=== PATIENT | male | born 1950 ===

== ENCOUNTER 2021-01-26 17:42 | Inpatient (IN) ==
[2021-01-26] MEDS ORDERED: Lactulose Oral Soln 20 GM/30 ML UDC PO STA (18:03)
[2021-01-26] MEDS ORDERED: Pantoprazole 40 MG VIAL IVP ONE (19:40)
[2021-01-26] MEDS ORDERED: cefTRIAXone 1,000 MG in Water for inj. (sterile) 10 ML IVP ONE (19:40)
[2021-01-26] MEDS ORDERED: Pantoprazole 40 MG VIAL IVP STA (19:51)
[2021-01-26 20:01] LABS: INR 1.9; Prothrombin Time 21.1 Seconds (9.4-12.1)
[2021-01-26] MEDS ORDERED: Octreotide 400 MCG in 0.9 % Sodium Chloride 100 ML IVC SCH (20:15)
[2021-01-26] MEDS: Octreotide 400 MCG in 0.9 % Sodium Chloride 100 ML IVC SCH (20:28)
[2021-01-26] MEDS ORDERED: Naloxone 0.4 MG/ML INJ IVP PRN (20:43)
[2021-01-26] MEDS ORDERED: Ondansetron 4 MG/2 ML VIAL IVP PRN (20:49)
[2021-01-26] MEDS ORDERED: Pantoprazole 40 MG in 0.9 % Sodium Chloride 50 ML IVPB ONE (20:54)
[2021-01-26] MEDS ORDERED: *HR* Promethazine 25 MG/ML VIAL IM PRN (21:12)
[2021-01-26] MEDS ORDERED: *HR* LORazepam 2 MG/ML VIAL IVP PRN ×3 (21:12)
[2021-01-26] MEDS ORDERED: Dextrose Gel 15 GM/37.5 ML TUBE PO PRN (21:14)
[2021-01-26] MEDS ORDERED: D5% in Water 1,000 ML IVC PRN (21:14)
[2021-01-26] MEDS ORDERED: *HR* Dextrose 50 % in Water (Vial) 50 ML VIAL IVP PRN (21:14)
[2021-01-26] MEDS ORDERED: Spironolactone 25 MG TABLET PO SCH (23:00)
[2021-01-26 23:39] LABS: Hematocrit 24.3 % (37.5-50.1); Hemoglobin 7.9 g/dL (12.9-16.9)
[2021-01-26 23:42] LABS: Alanine Aminotransferase 12 Units/L (7-52); Albumin 3.1 g/dL (3.5-5.7); Albumin/Globulin Ratio 1.1 (1.1-2.2); Alkaline Phosphatase 83 Units/L (34-104); Aspartate Amino Transferase 34 Units/L (13-39); BUN/Creatinine Ratio 16 (6-26); Bilirubin,Total 5.6 mg/dL (0.3-1.0); Blood Urea Nitrogen 16 mg/dL (8-23); Calcium 9.1 mg/dL (8.6-10.3); Carbon Dioxide 25 mEq/L (23-29); Chloride 97 mEq/L (98-107); Globulin 2.7 g/dL (2.4-3.5); Glucose 130 mg/dL (70-105); Magnesium 1.5 mg/dL (1.6-2.6); Osmolality,Calculated 279 (280-300); Potassium 3.6 mEq/L (3.5-5.1); Sodium 133 mEq/L (136-145); Total Protein 5.8 g/dL (6.4-8.9); Troponin I < 0.03 ng/mL (< 0.04); eGFR For African Americans > 60 (> 60); eGFR For Non-African Americans > 60 (> 60)
[2021-01-27] MEDS ORDERED: Insulin LISPRO 300 UNITS/3 ML VIAL SUBQ SCH
[2021-01-27] MEDS ORDERED: Albumin 25% 25gram/100mL 25 GM/100 ML IV.SOLN IVPB SCH
[2021-01-27] MEDS: Albumin 25% 25gram/100mL 25 GM/100 ML IV.SOLN IVC SCH ×2 (03:00→03:32)
[2021-01-27 03:25] LABS: Mean Corpuscular HGB Conc 32.3 g/dL (31.6-35.5); White Blood Count 4.8 K/mcL (4.3-11.1)
[2021-01-27 03:26] LABS: Hemoglobin 7.1 g/dL (12.9-16.9); Immature Platelets 2.2 % (1.1-6.1); Mean Corpuscular Volume 89.8 fL (83.0-100.0); Mean Platelet Volume 9.8 fL (9.4-12.4); Red Blood Count 2.45 M/mcL (4.19-5.50); Red Cell Distribution Width 15.3 % (11.5-14.5)
[2021-01-27] MEDS: Octreotide 400 MCG in 0.9 % Sodium Chloride 100 ML IVC SCH ×2 (03:31→16:06)
[2021-01-27 03:32] LABS: Prothrombin Time 23.2 Seconds (9.4-12.1)
[2021-01-27 03:43] LABS: Alanine Aminotransferase 11 Units/L (7-52); Albumin 3.1 g/dL (3.5-5.7); Albumin/Globulin Ratio 1.3 (1.1-2.2); Alkaline Phosphatase 71 Units/L (34-104); Aspartate Amino Transferase 31 Units/L (13-39); BUN/Creatinine Ratio 16 (6-26); Bilirubin,Total 4.8 mg/dL (0.3-1.0); Blood Urea Nitrogen 16 mg/dL (8-23); Carbon Dioxide 27 mEq/L (23-29); Chloride 98 mEq/L (98-107); Globulin 2.4 g/dL (2.4-3.5); Glucose 118 mg/dL (70-105); Osmolality,Calculated 278 (280-300); Potassium 3.5 mEq/L (3.5-5.1); Sodium 133 mEq/L (136-145); Total Protein 5.5 g/dL (6.4-8.9); eGFR For African Americans > 60 (> 60); eGFR For Non-African Americans > 60 (> 60)
[2021-01-27] MEDS ORDERED: *HR* Dextrose 50 % in Water (Vial) 50 ML VIAL IVP PRN (04:04)
[2021-01-27] MEDS ORDERED: Dextrose Gel 15 GM/37.5 ML TUBE PO PRN (04:04)
[2021-01-27] MEDS ORDERED: Albumin 25% 25gram/100mL 25 GM/100 ML IV.SOLN IVC SCH (04:04)
[2021-01-27] MEDS ORDERED: Pantoprazole 40 MG in 0.9 % Sodium Chloride 50 ML IVPB ONE (04:04)
[2021-01-27] MEDS ORDERED: D5% in Water 1,000 ML IVC PRN (04:04)
[2021-01-27] MEDS ORDERED: Naloxone 0.4 MG/ML INJ IVP PRN (04:04)
[2021-01-27] MEDS ORDERED: Ondansetron 4 MG/2 ML VIAL IVP PRN (04:04)
[2021-01-27] MEDS ORDERED: *HR* Promethazine 25 MG/ML VIAL IM PRN (04:04)
[2021-01-27] MEDS ORDERED: Octreotide 400 MCG in 0.9 % Sodium Chloride 100 ML IVC SCH (04:04)
[2021-01-27] MEDS ORDERED: Pantoprazole 40 MG VIAL IVP SCH ×2 (05:15→06:00)
[2021-01-27] MEDS ORDERED: 0.9 % Sodium Chloride 250 ML ONE ×2 (05:41→10:28)
[2021-01-27] MEDS: Insulin LISPRO 300 UNITS/3 ML VIAL SUBQ SCH ×4 (06:55→23:31)
[2021-01-27] MEDS ORDERED: Venlafaxine XR (24 HR) 37.5 MG CAP.ER.24H PO SCH (09:00)
[2021-01-27] MEDS ORDERED: Lactulose Oral Soln 20 GM/30 ML UDC PO SCH (09:00)
[2021-01-27] MEDS ORDERED: Furosemide 20 MG TABLET PO SCH (09:00)
[2021-01-27] MEDS: Pantoprazole 40 MG VIAL IVP SCH ×2 (10:30→20:39)
[2021-01-27] MEDS: Venlafaxine XR (24 HR) 37.5 MG CAP.ER.24H PO SCH (10:31)
[2021-01-27] MEDS: Lactulose Oral Soln 20 GM/30 ML UDC PO SCH ×2 (10:31→20:41)
[2021-01-27] MEDS ORDERED: cefTRIAXone 2,000 MG in Water for inj. (sterile) 20 ML IVP SCH (12:00)
[2021-01-27] MEDS: cefTRIAXone 2,000 MG in Water for inj. (sterile) 20 ML IVP SCH (14:39)
[2021-01-27 16:14] LABS: Eosinophils # 0.2 K/mcL (0.0-0.6); Eosinophils % 2.4 %; Immature Granulocytes % 0.5 % (0-4); Monocytes # 0.7 K/mcL (0.0-1.3); Monocytes % 11.7 %; White Blood Count 6.3 K/mcL (4.3-11.1)
[2021-01-27 16:16] LABS: Basophils % 0.5 %; Hematocrit 28.3 % (37.5-50.1); Immature Platelets 2.7 % (1.1-6.1); Lymphocytes # 1.2 K/mcL (0.6-4.6); Lymphocytes % 18.9 %; Mean Corpuscular HGB Conc 31.8 g/dL (31.6-35.5); Mean Corpuscular Hemoglobin 28.5 pg (28.0-33.3); Mean Corpuscular Volume 89.6 fL (83.0-100.0); Mean Platelet Volume 10.2 fL (9.4-12.4); Neutrophils # 4.2 K/mcL (1.6-8.9); Red Blood Count 3.16 M/mcL (4.19-5.50); Red Cell Distribution Width 15.6 % (11.5-14.5)
[2021-01-27 16:25] LABS: Platelet Count 82 K/mcL (140-400)
[2021-01-27 16:35] LABS: % Iron Saturation 42 % (20-55); Ferritin 29 ng/mL (20-250); Iron 84 mcg/dL (65-175); Transferrin 142 mg/dL (203-362)
[2021-01-27] MEDS ORDERED: SODIUM CHLORIDE/NAHCO3/KCL/PEG 4,000 ML SOLN.RECON PO ONE (17:00)
[2021-01-27] MEDS ORDERED: Thiamine (B-1) 100 MG, Folic Acid 1 MG, MVI, adult with vitamin K 10 ML in 0.9 % Sodi... IVPB SCH (18:00)
[2021-01-27] MEDS: hydrOXYzine pamoate 25 MG CAPSULE PO SCH (20:39)
[2021-01-27] MEDS ORDERED: hydrOXYzine pamoate 25 MG CAPSULE PO SCH (21:00)
[2021-01-28] MEDS: Octreotide 400 MCG in 0.9 % Sodium Chloride 100 ML IVC SCH ×2 (00:06→13:25)
[2021-01-28 03:44] LABS: Hematocrit 27.3 % (37.5-50.1); Hemoglobin 8.9 g/dL (12.9-16.9); Immature Platelets 2.1 % (1.1-6.1); Mean Corpuscular HGB Conc 32.6 g/dL (31.6-35.5); Mean Corpuscular Hemoglobin 28.4 pg (28.0-33.3); Mean Corpuscular Volume 87.2 fL (83.0-100.0); Mean Platelet Volume 9.5 fL (9.4-12.4); Red Blood Count 3.13 M/mcL (4.19-5.50); Red Cell Distribution Width 15.6 % (11.5-14.5); White Blood Count 6.5 K/mcL (4.3-11.1)
[2021-01-28 03:53] LABS: INR 2.4; Prothrombin Time 27.1 Seconds (9.4-12.1)
[2021-01-28 04:01] LABS: Alanine Aminotransferase 13 Units/L (7-52); Albumin 3.2 g/dL (3.5-5.7); Albumin/Globulin Ratio 1.3 (1.1-2.2); Alkaline Phosphatase 70 Units/L (34-104); Aspartate Amino Transferase 38 Units/L (13-39); BUN/Creatinine Ratio 16 (6-26); Bilirubin,Total 4.2 mg/dL (0.3-1.0); Blood Urea Nitrogen 15 mg/dL (8-23); Calcium 8.8 mg/dL (8.6-10.3); Carbon Dioxide 25 mEq/L (23-29); Chloride 99 mEq/L (98-107); Globulin 2.5 g/dL (2.4-3.5); Glucose 108 mg/dL (70-105); Osmolality,Calculated 277 (280-300); Potassium 3.2 mEq/L (3.5-5.1); Sodium 133 mEq/L (136-145); Total Protein 5.7 g/dL (6.4-8.9); eGFR For African Americans > 60 (> 60); eGFR For Non-African Americans > 60 (> 60)
[2021-01-28] MEDS: Insulin LISPRO 300 UNITS/3 ML VIAL SUBQ SCH ×3 (06:33→19:33)
[2021-01-28] MEDS ORDERED: Lidocaine -MPF 2% 2 ML VIAL ONE (09:06)
[2021-01-28] MEDS ORDERED: *HR* EPINEPHrine 1 MG/10 ML SYRINGE IVP PRN (10:23)
[2021-01-28] MEDS ORDERED: *HR* EPINEPHrine 1 MG/10 ML SYRINGE ONE (10:30)
[2021-01-28] MEDS: Pantoprazole 40 MG VIAL IVP SCH (11:10)
[2021-01-28] MEDS: Venlafaxine XR (24 HR) 37.5 MG CAP.ER.24H PO SCH (11:11)
[2021-01-28] MEDS: Lactulose Oral Soln 20 GM/30 ML UDC PO SCH ×2 (11:11→19:45)
[2021-01-28] MEDS: cefTRIAXone 2,000 MG in Water for inj. (sterile) 20 ML IVP SCH (12:43)
[2021-01-28] MEDS: Furosemide 40 MG TABLET PO SCH (12:44)
[2021-01-28] MEDS ORDERED: [UNRECOGNIZED DRUG - OTHER] IVPB ONE ×2 (14:22→20:00)
[2021-01-28] MEDS ORDERED: WATER FOR INJ IVPB ONE ×2 (14:22→20:00)
[2021-01-28] MEDS ORDERED: HUM PROTHROMBIN CPLX IVPB ONE ×2 (14:22→20:00)
[2021-01-28 18:54] LABS: RBC,Peritoneal Fluid < 2000 RBC/mcL
[2021-01-28 19:35] LABS: Appearance of Peritoneal Fl CLEAR (Clear); Basophils,Peritoneal Fluid 0 %; Eosinophils,Peritoneal Fluid 0 %
[2021-01-28] MEDS: hydrOXYzine pamoate 25 MG CAPSULE PO SCH (19:45)
[2021-01-29] MEDS: Insulin LISPRO 300 UNITS/3 ML VIAL SUBQ SCH ×4 (00:50→17:10)
[2021-01-29 05:14] LABS: INR 1.7; Prothrombin Time 19.5 Seconds (9.4-12.1)
[2021-01-29 05:17] LABS: Hematocrit 30.5 % (37.5-50.1); Hemoglobin 9.9 g/dL (12.9-16.9); Mean Corpuscular HGB Conc 32.5 g/dL (31.6-35.5); Mean Corpuscular Volume 89.4 fL (83.0-100.0); Mean Platelet Volume 9.2 fL (9.4-12.4); Platelet Count 95 K/mcL (140-400); Red Blood Count 3.41 M/mcL (4.19-5.50); Red Cell Distribution Width 15.8 % (11.5-14.5); White Blood Count 6.7 K/mcL (4.3-11.1)
[2021-01-29 05:37] LABS: Alanine Aminotransferase 13 Units/L (7-52); Albumin 3.2 g/dL (3.5-5.7); Albumin/Globulin Ratio 1.2 (1.1-2.2); Alkaline Phosphatase 71 Units/L (34-104); Aspartate Amino Transferase 38 Units/L (13-39); BUN/Creatinine Ratio 13 (6-26); Bilirubin,Total 3.1 mg/dL (0.3-1.0); Blood Urea Nitrogen 12 mg/dL (8-23); Carbon Dioxide 30 mEq/L (23-29); Chloride 97 mEq/L (98-107); Globulin 2.6 g/dL (2.4-3.5); Glucose 100 mg/dL (70-105); Osmolality,Calculated 274 (280-300); Potassium 3.3 mEq/L (3.5-5.1); Sodium 132 mEq/L (136-145); Total Protein 5.8 g/dL (6.4-8.9); eGFR For African Americans > 60 (> 60); eGFR For Non-African Americans > 60 (> 60)
[2021-01-29] MEDS ORDERED: [UNRECOGNIZED DRUG - OTHER] IVPB ONE (05:45)
[2021-01-29] MEDS ORDERED: WATER FOR INJ IVPB ONE (05:45)
[2021-01-29] MEDS ORDERED: HUM PROTHROMBIN CPLX IVPB ONE (05:45)
[2021-01-29] MEDS: Octreotide 400 MCG in 0.9 % Sodium Chloride 100 ML IVC SCH (07:30)
[2021-01-29] MEDS ORDERED: FEIBA (wt based) 1 EACH VIAL IV ONE (08:00)
[2021-01-29] MEDS ORDERED: ANTI INHIBITOR COAGULANT COMP IV ONE (08:00)
[2021-01-29] MEDS ORDERED: WATER FOR INJ IV ONE (08:00)
[2021-01-29] MEDS: Venlafaxine XR (24 HR) 37.5 MG CAP.ER.24H PO SCH (08:22)
[2021-01-29] MEDS: Furosemide 40 MG TABLET PO SCH (08:22)
[2021-01-29] MEDS ORDERED: Lidocaine -MPF 2% 2 ML VIAL ONE (09:02)
[2021-01-29] MEDS ORDERED: *HR* Propofol 200 MG/20 ML VIAL IVP ONE ×3 (09:53→10:15)
[2021-01-29] MEDS: Lactulose Oral Soln 20 GM/30 ML UDC PO SCH ×2 (09:57→20:03)
[2021-01-29] MEDS ORDERED: Potassium Chloride Elixir 20 MEQ/15 ML UDC PO ONE (13:31)
[2021-01-29] MEDS: hydrOXYzine pamoate 25 MG CAPSULE PO SCH (20:03)
[2021-01-30] MEDS: Insulin LISPRO 300 UNITS/3 ML VIAL SUBQ SCH ×2 (00:13→06:12)
[2021-01-30 04:24] LABS: Basophils % 0.4 %; Mean Platelet Volume 9.9 fL (9.4-12.4)
[2021-01-30 04:26] LABS: Eosinophils # 0.3 K/mcL (0.0-0.6); Eosinophils % 4.2 %; Hematocrit 29.6 % (37.5-50.1); Hemoglobin 9.7 g/dL (12.9-16.9); Immature Granulocytes % 0.4 % (0-4); Immature Platelets 1.7 % (1.1-6.1); Lymphocytes # 1.4 K/mcL (0.6-4.6); Lymphocytes % 20.1 %; Mean Corpuscular HGB Conc 32.8 g/dL (31.6-35.5); Mean Corpuscular Hemoglobin 29.8 pg (28.0-33.3); Mean Corpuscular Volume 91.1 fL (83.0-100.0); Monocytes % 14.6 %; Red Blood Count 3.25 M/mcL (4.19-5.50); Red Cell Distribution Width 15.8 % (11.5-14.5); Segmented Neutrophils % 60.3 %; White Blood Count 6.9 K/mcL (4.3-11.1)
[2021-01-30 04:30] LABS: Neutrophils # 4.2 K/mcL (1.6-8.9); Platelet Count 92 K/mcL (140-400)
[2021-01-30 04:43] LABS: Alanine Aminotransferase 12 Units/L (7-52); Albumin 2.9 g/dL (3.5-5.7); Albumin/Globulin Ratio 1.2 (1.1-2.2); Alkaline Phosphatase 70 Units/L (34-104); Aspartate Amino Transferase 37 Units/L (13-39); BUN/Creatinine Ratio 14 (6-26); Bilirubin,Direct 0.9 mg/dL (0.0-0.2); Bilirubin,Indirect 1.7 mg/dL (0.0-1.0); Bilirubin,Total 2.6 mg/dL (0.3-1.0); Blood Urea Nitrogen 12 mg/dL (8-23); Calcium 8.6 mg/dL (8.6-10.3); Carbon Dioxide 30 mEq/L (23-29); Chloride 100 mEq/L (98-107); Globulin 2.4 g/dL (2.4-3.5); Glucose 98 mg/dL (70-105); Osmolality,Calculated 278 (280-300); Potassium 3.4 mEq/L (3.5-5.1); Sodium 134 mEq/L (136-145); Total Protein 5.3 g/dL (6.4-8.9); eGFR For African Americans > 60 (> 60); eGFR For Non-African Americans > 60 (> 60)
[2021-01-30 07:11] VITALS: BP 116/65
[2021-01-30] MEDS: Furosemide 40 MG TABLET PO SCH (08:23)
[2021-01-30] MEDS: Lactulose Oral Soln 20 GM/30 ML UDC PO SCH (08:23)
[2021-01-30] MEDS: Venlafaxine XR (24 HR) 37.5 MG CAP.ER.24H PO SCH (08:23)
[2021-01-30] MEDS ORDERED: Potassium Chloride Elixir 20 MEQ/15 ML UDC PO ONE (09:45)
== END 2021-01-30 11:31 | disposition home or self-care (01) | DRG 988 ==
LOC: 2NNU 17:42 → EMEROOARM 17:42 → SUATTDRO 21:02 → 2NNU 22:34 → 3ANU 01-27 04:03
PROVIDERS: ADMIT Internal Medicine; ATTEND Internal Medicine

== ENCOUNTER 2021-06-10 16:44 | Observation (INO) ==
[2021-06-10 17:54] LABS: Basophils % 0.3 %; Mean Platelet Volume 9.3 fL (9.4-12.4); Red Cell Distribution Width 14.9 % (11.5-14.5)
[2021-06-10 17:56] LABS: Eosinophils # 0.1 K/mcL (0.0-0.6); Eosinophils % 1.8 %; Hematocrit 36.6 % (37.5-50.1); Hemoglobin 12.7 g/dL (12.9-16.9); Immature Granulocytes % 0.2 % (0-4); Lymphocytes # 1.3 K/mcL (0.6-4.6); Lymphocytes % 19.8 %; Mean Corpuscular HGB Conc 34.7 g/dL (31.6-35.5); Mean Corpuscular Volume 95.1 fL (83.0-100.0); Monocytes # 1.1 K/mcL (0.0-1.3); Monocytes % 17.2 %; Red Blood Count 3.85 M/mcL (4.19-5.50); Segmented Neutrophils % 60.7 %; White Blood Count 6.6 K/mcL (4.3-11.1)
[2021-06-10 18:00] LABS: Platelet Count 92 K/mcL (140-400)
[2021-06-10 18:18] LABS: BUN/Creatinine Ratio 14 (6-26); Blood Urea Nitrogen 11 mg/dL (8-23); Calcium 9.3 mg/dL (8.6-10.3); Carbon Dioxide 27 mEq/L (23-29); Chloride 100 mEq/L (98-107); Glucose 96 mg/dL (70-105); Osmolality,Calculated 273 (280-300); Potassium 4.1 mEq/L (3.5-5.1); Sodium 132 mEq/L (136-145); eGFR For African Americans > 60 (> 60); eGFR For Non-African Americans > 60 (> 60)
[2021-06-10 19:10] LABS: Alanine Aminotransferase 20 Units/L (7-52); Albumin 3.2 g/dL (3.5-5.7); Albumin/Globulin Ratio 1.1 (1.1-2.2); Alkaline Phosphatase 106 Units/L (34-104); Aspartate Amino Transferase 39 Units/L (13-39); Bilirubin,Direct 1.4 mg/dL (0.0-0.2); Bilirubin,Indirect 3.2 mg/dL (0.0-1.0); Bilirubin,Total 4.6 mg/dL (0.3-1.0); Lipase 46 Units/L (11-82); Total Protein 6.2 g/dL (6.4-8.9)
[2021-06-10 19:46] LABS: INR 1.6
[2021-06-10 20:17] LABS: Activated Partial Thrombo Time 63.8 Seconds (26.0-36.0)
[2021-06-10] MEDS ORDERED: Naloxone 0.4 MG/ML INJ IVP PRN (22:16)
[2021-06-10] MEDS ORDERED: Ondansetron 4 MG/2 ML VIAL IVP PRN (22:16)
[2021-06-10] MEDS ORDERED: Ipratropium/Albuterol Neb 3 ML IH PRN (23:55)
[2021-06-11] MEDS ORDERED: Furosemide 40 MG/4 ML VIAL IVP ONE (00:05)
[2021-06-11] MEDS ORDERED: Perflutren Lipid Microsphere 1.3 ML in 0.9 % Sodium Chloride 8.7 ML IVP PRN (00:06)
[2021-06-11 02:04] LABS: Basophils % 0.3 %; Immature Granulocytes % 0.2 % (0-4); Red Cell Distribution Width 14.9 % (11.5-14.5)
[2021-06-11 02:06] LABS: Eosinophils # 0.1 K/mcL (0.0-0.6); Eosinophils % 2.3 %; Hematocrit 37.6 % (37.5-50.1); Immature Platelets 1.8 % (1.1-6.1); Lymphocytes # 1.4 K/mcL (0.6-4.6); Lymphocytes % 23.5 %; Mean Corpuscular HGB Conc 34.6 g/dL (31.6-35.5); Mean Corpuscular Volume 95.4 fL (83.0-100.0); Mean Platelet Volume 9.4 fL (9.4-12.4); Monocytes # 0.8 K/mcL (0.0-1.3); Monocytes % 13.8 %; Neutrophils # 3.6 K/mcL (1.6-8.9); Red Blood Count 3.94 M/mcL (4.19-5.50); Segmented Neutrophils % 59.9 %
[2021-06-11 02:08] LABS: Platelet Count 86 K/mcL (140-400)
[2021-06-11 02:11] LABS: INR 1.5; Prothrombin Time 16.7 Seconds (9.4-12.1)
[2021-06-11 02:14] LABS: Activated Partial Thrombo Time 34.4 Seconds (26.0-36.0)
[2021-06-11 02:23] LABS: BUN/Creatinine Ratio 15 (6-26); Blood Urea Nitrogen 11 mg/dL (8-23); Calcium 9.5 mg/dL (8.6-10.3); Carbon Dioxide 22 mEq/L (23-29); Chloride 102 mEq/L (98-107); Glucose 116 mg/dL (70-105); Magnesium 1.7 mg/dL (1.6-2.6); Osmolality,Calculated 274 (280-300); Phosphorous 2.7 mg/dL (2.7-4.5); Potassium 3.6 mEq/L (3.5-5.1); Sodium 132 mEq/L (136-145); eGFR For African Americans > 60 (> 60); eGFR For Non-African Americans > 60 (> 60)
[2021-06-11] MEDS ORDERED: Furosemide 40 MG TABLET PO SCH ×2 (08:00→09:00)
[2021-06-11] MEDS: Albumin 25% 25gram/100mL 25 GM/100 ML IV.SOLN IVC SCH ×4 (08:24→13:41)
[2021-06-11] MEDS ORDERED: Lactulose Oral Soln 20 GM/30 ML UDC PO SCH (09:00)
[2021-06-11] MEDS ORDERED: Multivit/Ca/Min/Fe/FA 1 TAB TABLET PO SCH (09:00)
[2021-06-11] MEDS ORDERED: Venlafaxine XR (24 HR) 37.5 MG CAP.ER.24H PO SCH (09:00)
[2021-06-11 10:49] VITALS: TEMP 98.2
[2021-06-11 14:05] LABS: RBC,Pleural Fluid < 2000 RBC/mcL
[2021-06-11 14:20] VITALS: BP 103/56; PULSE 86; O2SAT 96
[2021-06-11 14:33] LABS: Amylase,Pleural Fluid 15 Units/L (No Ref Range); Glucose,Pleural Fluid 112 mg/dL (No Ref Range); LDH,Pleural Fluid 43 Units/L (No Ref Range); Total Protein,Pleural Fluid < 2.0 g/dL
[2021-06-11 15:08] LABS: Appearance of Pleural Fl Clear (Clear)
[2021-06-11 15:25] LABS: Basophils,Pleural Fluid 0 %; Eosinophils,Pleural Fluid 0 %
[2021-06-14 03:08] LABS: Fluid Source for Cholesterol PLEURAL FLUID
[2021-06-14 10:32] LABS: Cholesterol,Body Fluid 17 mg/dL
== END 2021-06-11 19:05 | disposition home or self-care (01) ==
LOC: 3BNU 16:44 → EMEROOARM 16:44 → SUATTDRO 21:47 → 3BNU 22:37
PROVIDERS: ADMIT Internal Medicine; ATTEND Internal Medicine
PROC: [UNRECOGNIZED PROCEDURE] (2021-06-11 12:00)